=== PATIENT | male | born 1965 | race Caucasian/White ===

== ENCOUNTER → 2023-12-17 08:15 | Outpatient (REF) | payer BC, SELFPAY ==
[2023-12-17 09:32] LABS: Urine Albumin Negative (Neg - Trace); Urine Bilirubin Negative (Negative); Urine Character Clear (Clear); Urine Color Yellow; Urine Glucose Negative (Negative); Urine Ketone Negative (Negative); Urine Leukocyte Negative (Negative); Urine Nitrite Negative (Negative); Urine Occult Blood Negative (Negative); Urine Urobilinogen Negative (Neg - 1+)
[2023-12-17 09:43] LABS: % Basophils 0.8 % (0-2); % Eosinophils 1.7 % (0-6); % Immature Granulocytes 0.2 % (0-0.5); % Lymphocytes 36.1 % (20.5-51.1); % Monocytes 7.2 % (1.7-9.3); Absolute Eosinophils 0.1 10^3/uL (0-0.7); Absolute Lymphocytes 1.9 10^3/uL (1.2-3.4); Absolute Monocytes 0.4 10^3/uL (0.1-0.6); Absolute Neutrophils 2.8 10^3/uL (1.4-6.5); Hematocrit 44.6 % (39.0-52.0); Hemoglobin 15.3 g/dL (13.0-18.0); Mean Corp Hgb Conc. 34.3 g/dL (33.0-37.0); Mean Corpuscular Hgb 29.6 pg (27.0-31.0); Mean Corpuscular Volume 86.3 fL (80.0-94.0); Mean Platelet Volume 10.2 fL (7.4-10.4); Nucleated Red Blood Cells % 0 % (-); Platelet Count 215 10^3/uL (130-400); Red Blood Cell Count 5.17 10^6/uL (4.70-6.10); Red Cell Dist. Width 13.2 % (11.5-14.5); White Blood Cell Count 5.3 10^3/uL (4.8-10.8)
[2023-12-17 12:14] LABS: ALT (SGPT) 27 U/L (0-50); AST (SGOT) 33 U/L (17-59); Albumin 4.5 g/dl (3.5-5.0); Alkaline Phosphatase 75 U/L (38-126); Blood Urea Nitrogen 14 mg/dl (9-20); Calcium 9.5 mg/dl (8.4-10.2); Carbon Dioxide 30 mmol/L (22-30); Chloride 103 mmol/L (98-107); Glucose 95 mg/dl (70-99); HDL Cholesterol 61 mg/dl; LDL Cholesterol, Calculated 60 mg/dl; Phosphorus 3.4 mg/dl (2.5-4.5); Potassium 4.6 mmol/L (3.5-5.1); Sodium 139 mmol/L (135-145); Total Cholesterol 138 mg/dl (50-199); Total Protein 7.1 g/dl (6.3-8.2); Triglyceride 87 mg/dl (10-149); Very Low Density Lipoprotein 17 mg/dl (0-30); eGFR > 60.00
[2023-12-17 12:23] LABS: Vitamin D, 25-OH*** 42.1 ng/mL (30-80)
[2023-12-17 12:37] LABS: PSA, Total - Screen 0.83 ng/ml (0.0-4.0)
[2023-12-17 13:16] LABS: TSH Reflex To Free T4 1.75 uIU/ml (0.47-4.68)
== END ==
LOC: REG 08:15
PROVIDERS: ATTENDING PHYSICIAN Internal Medicine
DX: E78.5 Hyperlipidemia, unspecified (principal); Z00.00 Encounter for general adult medical examination without abnormal findings; Z68.33 Body mass index [BMI] 33.0-33.9, adult; I25.10 Atherosclerotic heart disease of native coronary artery without angina pectoris; Z12.5 Encounter for screening for malignant neoplasm of prostate; Z79.899 Other long term (current) drug therapy
CPT/HCPCS: 36415; 80053; 80061; 81003; 82306; 84100; 84443; 85025; G0103

== ENCOUNTER → 2024-05-16 06:28 | Day surgery (SDC) | payer BC, SELFPAY | LOC: GI 06:28 | PROVIDERS: ATTENDING PHYSICIAN Internal Medicine Gastroenterology | DX: Z09 Encounter for follow-up examination after completed treatment for conditions other than malignant neoplasm (principal); K57.30 Diverticulosis of large intestine without perforation or abscess without bleeding; K64.8 Other hemorrhoids; K62.89 Other specified diseases of anus and rectum; Z86.0101 Personal history of adenomatous and serrated colon polyps | CPT/HCPCS: 45378 ==

== ENCOUNTER → 2024-12-16 12:08 | Outpatient (REF) | payer BC, SELFPAY ==
[2024-12-16 13:04] LABS: Urine Albumin Negative (Neg - Trace); Urine Bilirubin Negative (Negative); Urine Character Clear (Clear); Urine Color Yellow; Urine Glucose Negative (Negative); Urine Ketone Negative (Negative); Urine Leukocyte Negative (Negative); Urine Nitrite Negative (Negative); Urine Occult Blood Negative (Negative); Urine Specific Gravity 1.005 (<1.030); Urine Urobilinogen Negative (Neg - 1+)
[2024-12-16 13:35] LABS: % Basophils 0.4 % (0-2); % Eosinophils 0.9 % (0-6); % Lymphocytes 29.6 % (20.5-51.1); % Monocytes 6.3 % (1.7-9.3); % Neutrophils 62.8 % (42.2-75.2); Absolute Eosinophils 0.1 10^3/uL (0-0.7); Absolute Lymphocytes 1.7 10^3/uL (1.2-3.4); Absolute Monocytes 0.4 10^3/uL (0.1-0.6); Absolute Neutrophils 3.5 10^3/uL (1.4-6.5); Hemoglobin 16.6 g/dL (13.0-18.0); Mean Corp Hgb Conc. 34.6 g/dL (33.0-37.0); Mean Corpuscular Hgb 29.6 pg (27.0-31.0); Mean Corpuscular Volume 85.7 fL (80.0-94.0); Mean Platelet Volume 10.2 fL (7.4-10.4); Nucleated Red Blood Cells % 0 % (-); Platelet Count 238 10^3/uL (130-400); Red Cell Dist. Width 13.1 % (11.5-14.5); White Blood Cell Count 5.6 10^3/uL (4.8-10.8)
[2024-12-16 13:57] LABS: ALT (SGPT) 31 U/L (0-50); AST (SGOT) 29 U/L (17-59); Albumin 5.1 g/dl (3.5-5.0); Alkaline Phosphatase 68 U/L (38-126); Blood Urea Nitrogen 11 mg/dl (9-20); Calcium 9.9 mg/dl (8.4-10.2); Carbon Dioxide 27 mmol/L (22-30); Chloride 105 mmol/L (98-107); Glucose 86 mg/dl (70-99); HDL Cholesterol 63 mg/dl; LDL Cholesterol, Calculated 61 mg/dl; Potassium 4.6 mmol/L (3.5-5.1); Sodium 140 mmol/L (135-145); Total Bilirubin 1.1 mg/dl (0.2-1.3); Total Cholesterol 147 mg/dl (50-199); Total Protein 7.8 g/dl (6.3-8.2); Triglyceride 117 mg/dl (10-149); Very Low Density Lipoprotein 23 mg/dl (0-30); eGFR > 60.00
[2024-12-16 15:44] LABS: Vitamin D, 25-OH*** 45.5 ng/mL (30-80)
== END ==
LOC: REG 12:08
PROVIDERS: ATTENDING PHYSICIAN Internal Medicine
DX: Z00.00 Encounter for general adult medical examination without abnormal findings (principal); Z79.899 Other long term (current) drug therapy; Z12.5 Encounter for screening for malignant neoplasm of prostate; G47.33 Obstructive sleep apnea (adult) (pediatric); I25.84 Coronary atherosclerosis due to calcified coronary lesion; I25.10 Atherosclerotic heart disease of native coronary artery without angina pectoris; E78.5 Hyperlipidemia, unspecified
CPT/HCPCS: 36415; 80053; 80061; 81003; 82306; 85025; 86735; 86765; G0103